=== PATIENT | male | born 1970 | race Caucasian/White ===

== ENCOUNTER 2020-03-16 11:18 | Emergency (ER) | payer OTHER, BC ==
[~2020-03-16] VITALS: Ht 188 cm; Wt 113.4 kg
[~2020-03-16 11:18] MED LIST: PERCOCET PO; ZOFRAN ODT4 MG PO
[2020-03-16 11:57] VITALS: BP 162/91
== END 2020-03-16 11:58 | disposition home or self-care (01) ==
LOC: M.ERS 11:18
DX: S61.211A Laceration without foreign body of left index finger without damage to nail, initial encounter (principal); Z88.5 Allergy status to narcotic agent; Z88.0 Allergy status to penicillin; W22.8XXA Striking against or struck by other objects, initial encounter; Y93.89 Activity, other specified; Y92.89 Other specified places as the place of occurrence of the external cause; Y99.8 Other external cause status